=== PATIENT | female | born 1985 | race Caucasian/White ===

== ENCOUNTER 2017-05-30 17:10 | Inpatient (IN) | payer OTHER ==
[~2017-05-30] VITALS: Ht 167.6 cm; Wt 72.6 kg
--- NOTE | ~2017-05-30 | PN ---
Unit #: [id number] #: [id number] Patient: HUE JAMES [id number] [facility] [address] [place] [address] [id number] I MR#: [id number] NAME: HUE JAMES ROOM: P252 Age: 31 Sex: F Admission Date: 05/30/2017 : 1985 Attending Physician: Kim Wiggins M.D. Admitting Physician: Kim Wiggins M.D. Primary Care Physician: Generic Doctor Not In System [facility] PROGRESS NOTES DATE 06/01/2017 DISCUSSION Ms. James is a 31-year-old white female with mood disorder who was seen today and chart was reviewed and case was discussed with the staff. She has been anxious, withdrawn and rather seclusive to herself though has been calm and cooperative with treatment recommendations and has been taking medications and tolerating them fairly well. MENTAL STATUS EXAMINATION Young white female who was casually dressed with fair personal hygiene and appears to be in no acute distress or discomfort. She was awake and alert with intact orientation. Her mood was anxious with congruent affect. She denies any suicidal or homicidal ideation. Her insight and judgement remains slightly impaired. TREATMENT PLAN 1. Will continue on current medications and treatment protocol. Will monitor her response to the medications and make further adjustments as needed. 2. Will continue to follow up. Dictated by... Tessy Garcia/mary ann TD: 06/01/2017 22:15 JOB #: [id number] Unit #: [id number] #: [id number] Patient: HUE JAMES PROGRESS NOTES Page 1 of 1 X Kim Wiggins MD X PROGRESS NOTE
--- NOTE | ~2017-05-30 | PA ---
Unit #: [id number] #: [id number] Patient: [facility]UE JAMES [id number] [facility] [place] [address] [id number] I MR#: [id number] NAME: HUE JAMES ROOM: P252 Age: 31 Sex: F Admission Date: 05/30/2017 : 1985 Date of Assessment: 05/30/2017 Attending Physician: Kim Wiggins M.D. Admitting Physician: Kim Wiggins M.D. Primary Care Physician: Generic Doctor Not In System PSYCHIATRIC ASSESSMENT DATE OF SERVICE 05/31/2017. IDENTIFYING DATA Ms. James is a 31-year-old, , white female, who is a resident of [place], [place] and was self-referred to the hospital accompanied by her aunt. CHIEF COMPLAINT "Suicidal ideations." HISTORY OF PRESENT ILLNESS Ms. James is a 31-year-old white female, who was brought to the hospital accompanied by her aunt with increasing depression and suicidal ideation, as she stated "well, yesterday I got some bad news and I immediately blacked out and started cutting my arm with a knife and I wanted a gun and did not have an access to one and I grabbed a knife and called a friend to take me to my aunt and I was too emotional to drive." She reports that she has not seen her daughter for 4 months and her daughter is 5 years old and she is fighting for custody and she has a chemical applicator who is trying to work to see if she can have some visitation. 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 SUBSTANCE ABUSE HISTORY The patient reports history of alcohol abuse, but denies any other substance abuse issues. PAST PSYCHIATRIC HISTORY The patient has had a history of inpatient psychiatric hospitalization at [facility] in 2012 and has had some outpatient treatment as well. However, review of the medical records indicate that she has been diagnosed and treated for bipolar disorder and supposed to be on Lexapro and Abilify, but apparently has been noncompliant with medication and as such, has been decompensating. PAST MEDICAL HISTORY Unit #: [id number] #: [id number] Patient: HUE JAMES The patient's medical history is insignificant. ALLERGIES Benadryl. PERSONAL AND SOCIAL HISTORY A 31-year-old white female, who reports that she is single, unemployed, and lives alone and has poor social support system. MENTAL STATUS EXAMINATION Young white female, who was casually dressed with fair personal hygiene, appears to be in no acute distress or discomfort. She was awake and alert on interaction with intact orientation. Her mood was anxious and depressed with a congruent affect. Her speech was slow and restricted in content. She reports having suicidal ideations, but denies any homicidal ideations, and also denies any auditory or visual hallucinations. Her insight and judgment remain significantly impaired. DIAGNOSTIC IMPRESSION Psychiatric: Bipolar disorder, most recent episode depressed, recurrent, moderate, without psychotic features. Medical: None. Stressors: Moderate psychosocial stressors. TREATMENT PLAN 1. The patient has presented with a history of substance abuse and mood disorder, and has been decompensating and will need inpatient hospitalization for safety and stabilization. We will start her back on her home medications. We will monitor response and make further adjustments as needed. 2. Supportive therapy was provided to the patient. 3. Safe, structured, and nourishing environment will be provided. ESTIMATED LENGTH OF STAY 5 to 7 days. ABILITY TO HELP SELF Limited. WILLINGNESS TO HELP SELF The patient appears to be willing to help self. STRENGTHS 1. Communicative. 2. Cooperative. PROBLEMS 1. Chronic dysphoric symptoms. 2. Poor social support system. DISCHARGE CRITERIA This will be contingent upon the patient's ability to show resolution of her depression and anxiety and her ability to stay safe to herself, particularly after discharge from the hospital. Unit #: [id number] #: [id number] Patient: HUE JAMES Dictated by... Tessy Garcia/filipe TD: 06/01/2017 02:54 JOB #: [id number] PSYCHIATRIC ASSESSMENT Page 1 of 1 X Kim Wiggins MD PSYCHIATRIC ASSESSMENT
--- NOTE | ~2017-05-30 | DS ---
Unit #: [id number] #: [id number] [facility]: [facility] [id number] [facility] [place] [place] [address] [id number] I MR#: [id number] NAME: HUE JAMES ROOM: [facility] Age: 31 Sex: F Admission Date: 05/30/2017 : 1985 Discharge Date: 06/03/2017 Attending Physician: Kim Wiggins M.D. Primary Care Physician: Generic Doctor Not In System DISCHARGE SUMMARY IDENTIFYING DATA Ms. James is a 31-year-old single white female, who is a resident of [place], [place] and was self-referred to the hospital on voluntary basis. DISCHARGE DIAGNOSES Psychiatric: Bipolar disorder, most recent episode depressed, recurrent, moderate, without psychotic features. Medical: None. Stressors: Moderate psychosocial stressors. HISTORY OF PRESENT ILLNESS Please see initial psychiatric evaluation for details. PAST PSYCHIATRIC HISTORY Please see initial psychiatric evaluation for details. PAST MEDICAL HISTORY Please see initial psychiatric evaluation for details. HOSPITAL COURSE The patient was admitted to the adult psychiatric unit at [facility] Franc[facility] and was oriented to the hospital environment. Routine p.r.n. medications were initiated, and she was started back on her home medications and medications were adjusted and she was closely monitored. She was taking the medications regularly and was tolerating them fairly well and was able to show a decent and therapeutic response and was willing to continue treatment on an outpatient basis and as such, it was decided that she will be kept on her current medications and will be discharged home and will continue treatment on an outpatient basis. DISCHARGE MEDICATIONS Abilify 10 mg a day for depression and Lexapro 20 mg a day for depression. DISCHARGE CONDITION Stable. PROGNOSIS Fair. Dictated by... Kim Wiggins M.D. Unit #: [id number] #: [id number] Patient: HUE JAMES IAA/modl TD: 06/04/2017 11:27 JOB #: [id number] DISCHARGE SUMMARY Page 1 of 1 X Kim Wiggins MD X DISCHARGE SUMMARY
--- NOTE | ~2017-05-30 | CO ---
Unit #: [id number] #: [id number] Patient: SOO JAMES [id number] [place] [address] [id number] I MR#: [id number] NAME: SOO JAMES ROOM: P252 Age: 32 Sex: F Admission Date: 05/30/2017 : 1985 Attending Physician: Kim Wiggins M.D. Primary Care Physician: Generic Doctor Not In System Consultation Date: 05/31/2017 CONSULTATION REPORT SUBJECTIVE Soo is a 32-year-old with history of self-harming. She was admitted with a very superficial scratches along her left forearm. There is no increased redness, swelling, heat, or pus noted. At the time of admission, recommendation was to keep the area clean with soap and water and covered with a Band-Aid. Dictated by... Uma Tillman P.A.-C. for Tessy Sommers/filipe TD: 06/05/2017 14:23 JOB #: [id number] CONSULTATION REPORT Page 1 of 1 X Uma Tillman CONSULTATION REPORT
--- NOTE | ~2017-05-30 | PN ---
Unit #: [id number] #: [id number] Patient: HUE JAMES [id number] [facility] [address] [place] [address] [id number] I MR#: [id number] NAME: HUE JAMES ROOM: P252 Age: 31 Sex: F Admission Date: 05/30/2017 : 1985 Attending Physician: Kim Wiggins M.D. Admitting Physician: Kim Wiggins M.D. Primary Care Physician: Generic Doctor Not In System [facility] PROGRESS NOTES DATE OF SERVICE 06/02/2017 DISCUSSION Walter is a 31-year-old white female with mood disorder who was seen today. Chart was reviewed and case was discussed with the staff. She reports doing fairly well and has been showing improvement in her depression and anxiety. She has been coming to therapy groups regularly and has been participating. MENTAL STATUS EXAMINATION Young white female who is casually dressed with fair personal hygiene, appears to be in no acute distress or discomfort. She was awake and alert on interaction with intact orientation. Her mood is anxious with congruent affect. She denies any suicidal or homicidal ideations. Her insight and judgment remain slightly impaired. TREATMENT PLAN 1. We will continue her on her current medications and treatment protocol. We will monitor her response to the medications and make further adjustments as needed. 2. We will continue to follow up. Dictated by... Kim Wiggins M.D. ISAAC/behzadg TD: 06/03/2017 07:44 JOB #: [id number] [facility] PROGRESS NOTES Page 1 of 1 X Kim Wiggins MD PROGRESS NOTE
--- NOTE | ~2017-05-30 | HP ---
Unit #: [id number] #: [id number] Patient: SOO JAMES [id number] [facility] [address] [place] [address] [id number] I MR#: [id number] NAME: SOO JAMES ROOM: P252 Age: 31 Sex: F Admission Date: 05/30/2017 : 1985 Attending Physician: Kim Wiggins M.D. Admitting Physician: Kim Wiggins M.D. Primary Care Physician: Generic Doctor Not In System HISTORY AND PHYSICAL HISTORY OF PRESENT ILLNESS Soo is a 31 year old admitted to [address] [place] [address] with depression and self-harming behavior. She has been scratching her arm. PAST MEDICAL HISTORY History of self-harming. PAST SURGICAL HISTORY 1. D & C 2. T & A ALLERGIES Dramamine (swelling) SOCIAL HISTORY Smokes greater than one pack per day. She has history of alcohol abuse but has been sober for a number of years. She denies illicit drug use. FAMILY HISTORY Medically noncontributory. REVIEW OF SYSTEMS CONSTITUTIONAL: No fever or chills. HEENT: Denies any sore throat, ear pain or runny nose. CARDIOVASCULAR: Denies chest pain, irregular heart rhythm or palpitations. CHEST: Denies shortness of breath or cough. No hemoptysis. GASTROINTESTINAL: Denies nausea, vomiting, diarrhea or chronic constipation. ENDOCRINE: Denies history of increased thirst or urination. No recent significant weight loss or gain. GENITOURINARY: Denies dysuria, frequency, or hematuria. SKIN: Denies any rashes. HEMATOLOGIC: Denies history of increased bleeding or bruising. MUSCULOSKELETAL: Denies any hot, swollen joints. No generalized muscle pain. NEUROLOGIC: Denies problems with vision or speech. No frequent, severe headaches. No numbness, tingling or weakness in any extremities. Denies loss of bladder or bowel control. CURRENT MEDICATIONS 1. Vistaril p.r.n. 2. Desyrel p.r.n. Unit #: [id number] #: [id number] Patient: SOO JAMES 3. Milk of Magnesia p.r.n. 4. Maalox p.r.n. 5. Tylenol p.r.n. 6. Abilify 10 mg q.a.m. 7. Lexapro 20 mg q.a.m. 8. Nicotine patch 21 mg q ay PHYSICAL EXAMINATION GENERAL: Alert, well-nourished, in no apparent distress. VITAL SIGNS: Blood pressure 130/80, heart rate 80, respirations 16, temperature 98.6. WEIGHT: 160 pounds. HEIGHT: 5'6". SKIN: Warm and dry without rash or lesion. HEENT: Normocephalic. TMs not viewed. Oral and nasal passages clear. Conjunctivae clear. Pupils equal, round and reactive to light and accommodation. Extraocular movements intact. NECK: Supple without lymphadenopathy or thyromegaly. HEART: Regular rate and rhythm without murmur. LUNGS: Clear. ABDOMEN: Soft, nontender. : Not done. EXTREMITIES: No evidence of cyanosis, clubbing or edema. Moves all extremities without focal deficit. NEUROLOGICAL: Grossly within normal limits. Cranial Nerves: II: Visual lowery are intact. III, IV AND : Extraocular movements are intact. Pupils are equal, round and reactive to light. V: Facial sensation is grossly normal. VII: Facial movements and expression are normal. VIII: Auditory acuity grossly intact. IX, X: Uvula is midline. Phonation is normal. XI: Patient shrugs shoulders and turns head normally. XII: Tongue protrudes in the midline. Sensory and Motor Function: Sensory and motor sensation is grossly normal. Motor: moves all extremities well. Coordination: Gait is normal. Deep Tendon Reflexes: Intact. IMPRESSION Psychiatric admission RECOMMENDATIONS PSYCHIATRIC: Per psychiatrist. MEDICAL: I see no contraindications to participating in facility's activities. MEDICAL PROGNOSIS Good. MEDICAL CONDITION Stable. Dictated by... Uma Tillman P.A.-C. Unit #: [id number] #: [id number] Patient: SOO JAMES LEIDA/edie TD: 05/31/2017 22:37 JOB #: [id number] HISTORY AND PHYSICAL Page 1 of 1 X Uma Tillman HISTORY AND PHYSICAL
[2017-05-31 09:40] LABS: BASOPHIL# 0.1 X10e3 (0-0.3); BASOPHIL% 0.8 % (0-2.5); EOSINOPHIL# 0.4 X10e3 (0-0.7); EOSINOPHIL% 3.8 % (0.0-7.0); HEMATOCRIT 42.5 % (35.0-45.0); HEMOGLOBIN 14.1 gm/dL (12.0-16.0); LYMPHOCYTE# 3.3 X10e3 (1.0-3.5); LYMPHOCYTE% 35.1 % (17.0-45.0); MEAN CORPUSCULAR HEMOGLOBIN 31.2 PG (28-34); MEAN CORPUSCULAR HGB CONC 33.2 g/dL (30-36); MEAN PLATELET VOLUME 9.3 FL (6.5-11.5); MONOCYTE# 0.6 X10e3 (0-1.0); MONOCYTE% 5.9 % (3.0-12.0); NEUTROPHIL# 5.1 X10e3 (1.5-7.1); NEUTROPHIL% 54.4 % (40-75); PLATELET COUNT 271 X10e3 (140-420); RED BLOOD COUNT 4.52 X10e (3.90-5.30); RED CELL DISTRIBUTION WIDTH 13.1 % (11.0-15.5); WHITE BLOOD COUNT 9.4 X10e3 (4.0-10.5)
[2017-05-31 09:43] LABS: DIFF IND NO
[2017-05-31 10:34] LABS: ALBUMIN SERUM 3.7 g/dL (3.5-5.0); BILIRUBIN,TOTAL 0.7 mg/dL (0.2-2.0); CALCIUM SERUM 8.9 mg/dL (8.4-10.2); CREATININE SERUM 0.8 mg/dL (0.6-1.4); GLOM FILT RATE Estimated 99.7 mL/min (>60); POTASSIUM 4.7 mmol/L (3.5-5.1); PROTEIN TOTAL SERUM 6.5 g/dL (6.0-8.3)
[2017-06-01 09:55] LABS: URINE APPEARANCE CLOUDY; URINE BILIRUBIN NEG (NEG); URINE BLOOD 3+ (NEG); URINE COLOR YELLOW; URINE GLUCOSE NEG (NEG); URINE KETONE NEG (NEG); URINE LEUKOCYTE ESTERASE NEG (NEG); URINE NITRATE NEG (NEG); URINE PH 6.5 (5-8); URINE PROTEIN NEG (NEG); URINE SPECIFIC GRAVITY 1.013 (1.003-1.035); URINE UROBILINOGEN 0.2 MG/DL (NEG)
[2017-06-01 09:59] LABS: URINE BACTERIA AUWI 2+ (NEGATIVE); URINE SQUAMOUS EPITHELIAL CELL MOD /[HPF]
[2017-06-01 10:18] LABS: AMPHETAMINE NEG (NEG); BARBITURATES NEG (NEG); BENZODIAZEPINES NEG (NEG); COCAINE NEG (NEG); MARIJUANA NEG (NEG); OPIATES NEG (NEG); TRICYCLIC ANTIDEPRESSANTS NEG (NEG); U METHADONE NEG (NEG)
== END 2017-06-03 12:15 | disposition home or self-care (01) | DRG 885 ==
LOC: P2L 19:17
PROVIDERS: Psychiatry & Neurology Psychiatry
DX: F31.32 Bipolar disorder, current episode depressed, moderate (principal); R45.851 Suicidal ideations; Z88.8 Allergy status to other drugs, medicaments and biological substances; Z91.5 Personal history of self-harm; F17.210 Nicotine dependence, cigarettes, uncomplicated
CPT/HCPCS: 80053; 80307; 81003; 85025